=== PATIENT | male | born 1955 | race Caucasian/White ===

== ENCOUNTER → 2016-07-02 | Outpatient (CLI) | payer BC, OTHER ==
[~2016-07-02] MED LIST: AMLO-61 PO; AMLO10CA PO; BISO10TA3 PO; HYDR-3716 PO; MECL-68 PO; NEUR300C PO; VICO7.5T11 PO
--- NOTE | 2016-07-15 23:21 | ECWPNPC ---
PATIENT NAME: MIRANDA VICTOR : 1955 GENDER: MALE VISIT DATE: 07/02/2016 DISCHARGE DATE: 07/02/16 1520 VISIT LOCKED DATE TIME: PHYSICIAN: KORY CHAMBERS RESOURCE: KORY CHAMBERS REASON FOR APPOINTMENT 1. WC LBP RECONSULT HISTORY OF PRESENT ILLNESS FALL RISK SCREENING: SCREENING :NO FALLS IN THE PAST YEAR 61 YEAR OLD MALE PATIENT WITH HISTORY OF CHRONIC BILATERAL HAND, LEFT SHOULDER, AND BACK PAIN. PATIENT DESCRIBES THE PAIN ACHING, TENDER, SORE, AND HAVING IT ALL THE TIME WITH A PAIN SCORE OF 7/10 ON TODAY'S VISIT. 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 PATIENT REPORTS THAT HE HAS HAD TWO BACK SURGERIES. PATIENT REPORTS OF TRYING PHYSICAL THERAPY FOR 2 MONTHS WITH OUT ANY IMPROVEMENTS IN PAIN RELIEF. PATIENT REPORTS THAT HE HAS RADIATING PAIN DOWN HIS LEFT LEG FROM HIS BACK. PATIENT DENIES UNEXPLAINABLE WEIGHT LOSS, FEVER, CHILLS, NEW CHANGES ON HIS URINARY OR BOWEL CONTROL. PAIN SCREENING: PATIENT HAS A COMPLAINT OF ACUTE OR CHRONIC PAIN :YES CURRENT MEDICATIONS TAKING MUPIROCIN 2 % OINTMENT 1 APPLICATION TO AFFECTED AREA EXTERNALLY THREE TIMES A DAY TAKING CETIRIZINE HCL 10 MG TABLET 1 TABLET NEEDED ORALLY ONCE A DAY TAKING AMLODIPINE BESY-BENAZEPRIL HCL 10-20 MG CAPSULE ORALLY TAKING SERTRALINE HCL 50 MG TABLET 0.5 TABLET ORALLY ONCE A DAY TAKING ASPIRIN ADULT LOW STRENGTH 81 MG TABLET DELAYED RELEASE 1 TABLET ORALLY ONCE A DAY TAKING MECLIZINE HCL 25 MG TABLET CHEWABLE 1 TABLET NEEDED ORALLY ONCE A DAY TAKING VICODIN TAKING BISOPROLOL-HYDROCHLOROTHIAZIDE 10-6.25 MG TABLET ORALLY DAILY NOT-TAKING TRIAMCINOLONE ACETONIDE 0.1 % OINTMENT 1 APPLICATION TO AFFECTED AREA EXTERNALLY TO EFFECTED AREA OF ARM AND LEG TWICE A DAY UNKNOWN AMLODIPINE BESYLATE MEDICATION LIST REVIEWED AND RECONCILED WITH THE PATIENT PAST MEDICAL HISTORY HYPERTENSION LOW BACK PAIN ANXIETY DEPRESSION ALLERGIES SEAFOOD: ANAPHYLAXIS BEE STING: ANAPHYLAXIS SURGICAL HISTORY BACK FUSION WITH RODS SHOULDER SURGERY CLAVICLE SURGERY CARPAL TUNNEL BILATERAL TONSILLECTOMY VASECTOMY FAMILY HISTORY FATHER: ALIVE MOTHER: ALIVE FATHER HX OF KIDNEY DISEASE, ALCOHOL ABUSE.MOTHER HX OF ARTHRITIS. SOCIAL HISTORY GENERAL: TOBACCO USE ARE YOU A: NEVER SMOKER DIET: REGULAR DIET. EXERCISE: NO REGULAR EXERCISE. MARITAL STATUS: . OTHERS AT HOME: SPOUSE. ADVANCED DIRECTIVES HEALTH CARE PROXY? NO ADVANCED DIRECTIVES HOSPITALIZATION/MAJOR DIAGNOSTIC PROCEDURE VERTIGO REVIEW OF SYSTEMS CONSTITUTIONAL: ANY CHANGE IN YOUR MEDICAL CONDITION? NO . CHILLS NO . FEVER NO . INFECTION: DO YOU HAVE NEW INFECTIONS? NO . DO YOU HAVE HISTORY OF MRSA? NO . MUSCULOSKELETAL: ANY NEW PATTERNS OF PAIN OR NUMBNESS? YES PT REPORTS LOW BACK PAIN. PT REPORTS THAT HIS LEG GAVE OUT IN MARCH, AND HE FELL ON HIS BACK. . SYTEMIC LUPUS NO . GASTROENTEROLOGY: ANY NEW CHANGE IN BOWEL CONTROL? NO . BARRETTS ESOPHAGUS NO . CIRRHOSIS NO . HEPATITIS NO . LIVER FAILURE NO . ACID REFLUX NO . UNEXPLAINED WEIGHT LOSS NO . GENITOURINARY: ANY NEW CHANGE IN BLADDER CONTROL? NO . IS THERE A CHANCE YOU COULD BE ? NO . HEMATOLOGY/LYMPH: DO YOU TAKE ANY BLOOD THINNERS? (FOR EXAMPLE- COUMADIN, PLAVIX, AGGRENOX, PLATEL, PRADAXA, OR XARELTO) NO . WHEN WAS YOUR LAST DOSE? DATE: TIME: . LOW PLATELET COUNT NO . SICKLE CELL DISEASE NO . VON WILLIEBRANDS NO . FACTOR V LEIDEN NO . THALLASEMIA NO . ANEMIA NO . EASY BRUISING NO . NEUROLOGY: HAVE YOU FALLEN IN THE PAST 6 MONTHS? YES . ANY NEW EXTREMITY NUMBNESS OR WEAKNESS? NO . HEAD INJURY NO . DEMENTIA NO . CEREBRAL PALSY NO . MULTIPLE SCLEROSIS NO . DIZZINESS NO . HEADACHE NO . STROKES NO . VERTIGO NO . CARDIOLOGY: DO YOU HAVE A PACEMAKER OR DEFIBRILLATOR? NO . ANGINA NO . HEART ATTACK NO . HEART SURGERY NO . CONGESTIVE HEART FAILURE/FLUID OVERLOAD NO . CHEST PAIN NO . HIGH BLOOD PRESSURE ON MEDICATION(S) . IRREGULAR HEART BEAT NO . RESPIRATORY: HAVE YOU BEEN SICK IN THE PAST WEEK? NO . FEVER NO . FLU LIKE SYMPTOMS? NO . CPAP NO . BYPAP NO . ASTHMA NO . EMPHYSEMA NO . CHRONIC LUNG DISEASES NO . SHORTNESS OF BREATH ON EXERTION NO . COUGH NO . SNORING NO . INTEGUMENTARY: DO YOU HAVE ANY RASHES OR OPEN SORES? NO . ALLERGIC/IMMUNO: ARE YOU ALLERGIC TO SHELLFISH OR IV DYE? YES . ANY NEW ALLERGIES? NO . PSYCHIATRIC: DO YOU HAVE THOUGHTS OF HURTING YOURSELF OR SOMEONE ELSE? NO . ARE YOU ABUSED, NEGLECTED, OR IN AN UNSAFE ENVIRONMENT? NO . ENDOCRINOLOGY: ARE YOU DIABETIC? NO . THYROID DISORDER NO . OTHER: DO YOU NEED ANY PRESCRIPTIONS? NO . IF YES, PLEASE LIST: ____ . ANY NEW PROBLEMS WITH YOUR MEDICATIONS? NO . WHEN DID YOU LAST EAT? ____ . WHEN DID YOU LAST DRINK? ____ . WHAT DID YOU LAST DRINK? ____ . NAME OF PERSON DRIVING YOU HOME? ____ . DO YOU HAVE ANY OTHER QUESTIONS OR CONCERNS NO . REVIEWED BY: PROVIDER: KORY CHAMBERS MD . VITAL SIGNS WT 265.0 LBS, HT 67", BMI 41.50 INDEX, BP 168/92 R ARM, REPEAT BP 153/87 L ARM, HR 63 /MIN, RR 16 /MIN, TEMP 98.1 F, OXYGEN SAT % 96%, SAFE IN ENV? (Y/N) YES, NA INITIALS TL 1331, REVIEWED BY: AJAY. EXAMINATION : PATIENT IS ALERT O X 3 AND COOPERATIVE. PATIENT AMBULATES WITH A LIMP ON THE RIGHT LEG. PATIENT IS ABLE TO FLEX HIS BACK TO 80 DEGREES AND EXTEND TO 10 DEGREES. THERE IS TENDERNESS IN THE LOW BACK PARASPINAL MUSCLE GROUP. PATIENT'S LEFT LEG IS WEAKER AT FLEXION AND EXTENSION. MRI OF THE LUMBAR SPINE DONE ON 03/18/2016 SHOWS A L4-S1 POSTERIOR FUSION WITH PEDICLE SCREWS, ARCH BARS AND DISC SPACE PROSTHESES AT L4-L5 AND L5-S1. ASSESSMENTS POSTLAMINECTOMY SYNDROME, NOT ELSEWHERE CLASSIFIED - M96.1 (PRIMARY) INTERVERTEBRAL DISC DISORDERS WITH RADICULOPATHY, LUMBAR REGION - M51.16 INTERVERTEBRAL DISC DISORDERS WITH RADICULOPATHY, LUMBOSACRAL REGION - M51.17 TREATMENT POSTLAMINECTOMY SYNDROME, NOT ELSEWHERE CLASSIFIED NOTES: WE DISCUSSED SEVERAL ISSUES WITH MR. VICTOR'S PAIN MANAGEMENT CASE. I DISCUSSED WITH THE PATIENT THAT DR. BRONSON REFERRED HIM TO US TO DISCUSS WHETHER HE IS A CANDIDATE FOR A DCS TRIAL. I DISCUSSED IN DETAIL WITH THE PATIENT WITH WHAT TO EXPECT AND THE PROCESSES FOR PROCEEDING FORWARD WITH A DCS TRIAL. INFORMED THE PATIENT THAT IF THE TRIAL IS SUCCESSFUL DR. BRONSON WITH PROCEED WITH THE DCS PERMANENT. SINCE WE HAVE AN MRI REPORT OF THE LUMBAR SPINE, I WILL WRITE A SCRIPT FOR A THORACIC MRI, ADVISED THE PATIENT THAT I WILL FIRST NEED TO REQUEST AUTH FOR THE THORACIC MRI. DISCUSSED WITH THE PATIENT THAT I WILL REFER HIM OUT FOR A PSYCHOLOGICAL EVALUATION FOR THE SPINAL COLUMN STIMULATOR. DISCUSSED WITH THE PATIENT THAT DR. BRONSON WOULD LIKE TO PROCEED WITH USING [employer] FOR THE SPINAL COLUMN STIMULATOR. PATIENT WILL FOLLOW UP WITH ME IN 6 WEEKS. ,INSTRUCTIONS WERE GIVEN, QUESTIONS WERE ANSWERED, PATIENT REPORTS UNDERSTANDING AND AGREES WITH THE PLAN. I, OXANA ACOSTA, DOCUMENTED THE ABOVE INFORMATION ACTING A SCRIBE FOR DR. CHAMBERS. I HAVE REVIEWED THE ABOVE DOCUMENT, WRITTEN BY OXANA ACOSTA SCRIBE AND I VERIFY THAT IT IS ACCURATE. DR. BRONSON -THANK YOU FOR YOUR KIND REFERRAL OF MR. VICTOR. IF YOU WOULD LIKE TO DISCUSS HIS CASE WITH ME, PLEASE CALL ME AT THE PAIN CENTER AT [phone]. PROCEDURES PN WORKMANS' COMP OPINION IN YOUR OPINION, WAS THE INCIDENT THAT THE PATIENT DESCRIBED THE COMPETENT MEDICAL CAUSE OF THIS INJURY/ILLNESS? YES ARE THE PATIENT'S COMPLAINTS CONSISTENT WITH HIS/HER HISTORY OF THE INJURY/ILLNESS? YES IS THE PATIENT'S HISTORY OF THE INJURY/ILLNESS CONSISTENT WITH YOUR OBJECTIVE FINDING? YES WHAT IS THE PERCENTAGE OF TEMPORARY IMPAIRMENT? TOTAL = 100% PER REFERRING PHYSICIAN. IS THE PATIENT WORKING? NO DOCTOR ON SITE: KORY TERRY MD PROCEDURE CODES FA211 ESTABILISHED PATIENT [facility] FACILITY CHARGE G8730 PAIN ASSESS POS TOOL F/U PLAN DOC G8427 DOC MEDS VERIFIED W/PT OR RE DISPOSITION & COMMUNICATION FOLLOW UP 6 WEEKS ELECTRONICALLY SIGNED BY KORY CHAMBERS MD ON 07/15/2016 AT 05:18 PM EDT DISCLAIMER : THIS IS A VISIT SUMMARY EXTRACTED FROM THE [employer] CHART. IT IS NOT A COPY OF THE [employer] PROGRESS NOTE. MTDD
== END ==
LOC: M PAIN 13:00
PROVIDERS: ATTEND Anesthesiology
DX: Z09 Encounter for follow-up examination after completed treatment for conditions other than malignant neoplasm (principal); M96.1 Postlaminectomy syndrome, not elsewhere classified; M51.16 Intervertebral disc disorders with radiculopathy, lumbar region; M51.17 Intervertebral disc disorders with radiculopathy, lumbosacral region; I10 Essential (primary) hypertension; F41.9 Anxiety disorder, unspecified; F32.9 Major depressive disorder, single episode, unspecified; Z91.030 Bee allergy status; Z91.013 Allergy to seafood; Z79.82 Long term (current) use of aspirin; Z79.891 Long term (current) use of opiate analgesic; Z79.899 Other long term (current) drug therapy

== ENCOUNTER → 2016-09-10 | Outpatient (CLI) | payer OTHER, BC | LOC: M PAIN 13:20 | PROVIDERS: ATTEND Anesthesiology | DX: Z53.29 Procedure and treatment not carried out because of patient's decision for other reasons (principal) ==

== ENCOUNTER → 2016-11-24 | Outpatient (CLI) | payer OTHER, BC ==
[~2016-11-24] MED LIST changes: -AMLO-61 PO; +AMLO1TAB21 PO
--- NOTE | 2016-11-24 09:29 | REP ---
LUMBAR SPINE, FIVE VIEWS: HISTORY: Back pain. COMPARISON: 03/18/2016. The patient is status post L4-S1 anterior and posterior spinal fusion and L4-5 laminectomy. Bone graft material is present anteriorly and metal rods and pedicle screws posteriorly. One of the rods is broken. There is no acute fracture. The lumbar intervertebral discs are decreased in height. Vacuum phenomenon is present at the L1-2, L2-3 and L4-5 levels. These findings are consistent with disc degeneration. Osteophytes are present throughout the lumbar spine. There are 7 mm of grade 1 spondylolisthesis of L4 on 5 that is unchanged with flexion and extension. IMPRESSION: 1. The patient is status post L4-S1 anterior and posterior spinal fusion and L4-5 laminectomy. 2. Degenerative change as described above. Signed by Dieter Man MD 11/24/2016 09:33 A
== END ==
LOC: M RAD 08:35
PROVIDERS: ATTEND Physician Assistant
DX: M51.36 Other intervertebral disc degeneration, lumbar region (principal); M96.1 Postlaminectomy syndrome, not elsewhere classified

== ENCOUNTER 2017-09-05 | Emergency (ER) | payer BC, OTHER ==
[2017-09-05] MEDS: MECLIZINE 25 MG TABLET PO (00:31)
[2017-09-05] MEDS: ONDANSETRON 4MG/2ML VIAL (J2405) IV (00:32)
== END 2017-09-05 02:50 | disposition home or self-care (01) ==
LOC: M ED
DX: R42 Dizziness and giddiness (principal); W11.XXXA Fall on and from ladder, initial encounter; Y92.89 Other specified places as the place of occurrence of the external cause; I10 Essential (primary) hypertension; F41.9 Anxiety disorder, unspecified; F12.10 Cannabis abuse, uncomplicated; Z88.5 Allergy status to narcotic agent; Z91.013 Allergy to seafood; Z91.030 Bee allergy status; Z79.899 Other long term (current) drug therapy
CPT/HCPCS: J2405

== ENCOUNTER → 2018-06-11 | Outpatient (REF) | payer BC ==
[2018-06-11 11:43] LABS: HEMATOCRIT 43.9 % (42.0-52.0); HEMOGLOBIN 15.1 g/dl (13.5-17.5); MEAN CORPUSCULAR HEMOGLOBIN 30.1 pg (27.0-33.0); MEAN CORPUSCULAR HGB CONC 34.4 g/dl (32.0-36.5); MEAN CORPUSCULAR VOLUME 87.6 fl (80.0-96.0); PLATELET COUNT, AUTOMATED 232 10^3/uL (150-450); RED BLOOD COUNT 5.01 10^6/uL (4.30-6.10); WHITE BLOOD COUNT 6.7 10^3/uL (4.0-10.0)
[2018-06-11 12:01] LABS: ALBUMIN 4.3 GM/DL (3.2-5.2); ALT/SGPT 44 U/L (12-78); BILIRUBIN,TOTAL 0.5 MG/DL (0.2-1.0); BLOOD UREA NITROGEN 11 MG/DL (7-18); CALCIUM LEVEL 8.8 MG/DL (8.8-10.2); CARBON DIOXIDE LEVEL 30 MEQ/L (21-32); CHLORIDE LEVEL 103 MEQ/L (98-107); CHOLESTEROL LEVEL 199 MG/DL (<200); CHOLESTEROL RISK RATIO 6.633 (<5); CREATININE FOR GFR 0.74 MG/DL (0.70-1.30); GLOMERULAR FILTRATION RATE > 60.0 (>49); GLUCOSE, FASTING 154 MG/DL (70-100); HDL CHOLESTEROL 30 MG/DL (>40); NON-HDL-C 169 MG/DL; POTASSIUM SERUM 4.6 MEQ/L (3.5-5.1); SODIUM LEVEL 141 MEQ/L (136-145); TOTAL PROTEIN 7.5 GM/DL (6.4-8.2); TRIGLYCERIDES LEVEL 483 MG/DL (<150)
== END ==
LOC: M SFHCPLAZ 08:10
PROVIDERS: ATTEND Nurse Practitioner Adult Health
DX: Z00.00 Encounter for general adult medical examination without abnormal findings (principal); Z13.220 Encounter for screening for lipoid disorders

== ENCOUNTER → 2018-11-14 | Outpatient (REF) | payer BC ==
[~2018-11-14] MED LIST changes: -AMLO10CA PO; +AMLO10CA17 PO; -BISO10TA3 PO; +BISO10TA4 PO
[2018-11-14 11:49] LABS: ALBUMIN 4.3 GM/DL (3.2-5.2); ALT/SGPT 61 U/L (12-78); BILIRUBIN,TOTAL 0.9 MG/DL (0.2-1.0); BLOOD UREA NITROGEN 14 MG/DL (7-18); CALCIUM LEVEL 9.5 MG/DL (8.8-10.2); CARBON DIOXIDE LEVEL 32 MEQ/L (21-32); CHLORIDE LEVEL 98 MEQ/L (98-107); CHOLESTEROL LEVEL 186 MG/DL (<200); CHOLESTEROL RISK RATIO 6.413 (<5); CREATININE FOR GFR 0.82 MG/DL (0.70-1.30); GLOMERULAR FILTRATION RATE > 60.0 (>49); GLUCOSE, FASTING 201 MG/DL (70-100); HDL CHOLESTEROL 29 MG/DL (>40); NON-HDL-C 157 MG/DL; POTASSIUM SERUM 4.2 MEQ/L (3.5-5.1); SODIUM LEVEL 136 MEQ/L (136-145); TOTAL PROTEIN 7.5 GM/DL (6.4-8.2); TRIGLYCERIDES LEVEL 533 MG/DL (<150)
[2018-11-14 12:11] LABS: HEMOGLOBIN A1c 8.3 %
== END ==
LOC: M SFHCPLAZ 08:07
PROVIDERS: ATTEND Nurse Practitioner Adult Health
DX: I10 Essential (primary) hypertension (principal); R73.9 Hyperglycemia, unspecified; E78.1 Pure hyperglyceridemia

== ENCOUNTER → 2018-12-15 | Outpatient (CLI) | payer BC ==
[~2018-12-15] MED LIST changes: +AMLO10TA5; +CARV25TA; +DIPH50CA PO; +EPIP0.3I2 IM; -MECL-68 PO; +MECL1TAB31 PO; +METF750T36; +PEPC1TAB5 PO; +PRED20TA PO; +VALS1TAB68; -VICO7.5T11 PO; +VICO7.5T12 PO
--- NOTE | 2018-12-16 05:27 | REP ---
Clinical: Hypertension and chronic medical renal disease. Technique: Gandara scale and color Doppler evaluation of the kidneys and renal vasculature using curved array transducer. Findings: The kidneys are essentially normal in contour size and echogenicity and reniform shape without hydronephrosis, nephrolithiasis, cystic or renal mass lesion. Right kidney measures 13.0 x 5.4 x 5.8 cm . Left kidney measures 12.6 x 5.1 x 5.5 cm . Bladder is incompletely distended and grossly normal by current evaluation. Color Doppler evaluation of the renal vasculature demonstrates normal arterial wave patterns, velocities, renal aortic ratios, resistive indices and the acceleration time. No sonographic evidence for renal arterial stenosis noted. Renal vein is patent. Right Kidney: Peak arterial velocity: 77 cm/sec . Renal aortic ratio: 1.40 . Resistive indices: 0.69 - 0.72 . Acceleration times: 0.02 - 0.04 . Left kidney: Peak arterial velocity: 73 cm/sec . Renal aortic ratio: 1.3 . Resistive indices: 0.68 - 0.79 . Acceleration times: 0.03 - 0.04 . Impression: Normal renal ultrasound. No evidence for renal arterial stenosis. Electronically Signed by Vince Pedroza MD 12/16/2018 05:18 A
== END ==
LOC: M RAD 08:15
PROVIDERS: ATTEND Internal Medicine Cardiovascular Disease
DX: I10 Essential (primary) hypertension (principal)

== ENCOUNTER → 2018-12-20 | Outpatient (CLI) | payer BC ==
[~2018-12-20] MED LIST changes: +MECL-68 PO; -MECL1TAB31 PO
== END ==
LOC: M LRY 09:16
PROVIDERS: ATTEND Internal Medicine Cardiovascular Disease
DX: I10 Essential (primary) hypertension (principal)

== ENCOUNTER 2018-12-29 15:22 | Emergency (ER) | payer BC ==
[~2018-12-29] VITALS: Ht 170.2 cm; Wt 113.6 kg
[~2018-12-29 15:22] MED LIST changes: -AMLO10TA5; -CARV25TA; -DIPH50CA PO; -EPIP0.3I2 IM; -METF750T36; -PEPC1TAB5 PO; -PRED20TA PO; -VALS1TAB68
[2018-12-29] MEDS ORDERED: METF750T36 (15:31)
[2018-12-29] MEDS ORDERED: CARV25TA (15:31)
[2018-12-29] MEDS ORDERED: VALS1TAB68 (15:31)
[2018-12-29] MEDS ORDERED: AMLO10TA5 (15:31)
[2018-12-29] MEDS ORDERED: FAMOTIDINE INJ 20MG/2ML VIAL (S0028) IVP ONE (16:00)
[2018-12-29] MEDS ORDERED: DIPH50CA PO (16:21)
[2018-12-29] MEDS ORDERED: PRED20TA PO (16:21)
[2018-12-29] MEDS ORDERED: PEPC1TAB5 PO (16:22)
[2018-12-29] MEDS ORDERED: FAMOTIDINE 20 MG TAB PO ONE (16:30)
[2018-12-29 17:30] VITALS: BP 147/80
[2018-12-29] MEDS ORDERED: EPIP0.3I2 IM (17:34)
== END 2018-12-29 17:38 | disposition home or self-care (01) ==
LOC: EDBD 15:22 → M ED 15:22
DX: T63.441A Toxic effect of venom of bees, accidental (unintentional), initial encounter (principal); Z88.5 Allergy status to narcotic agent; Z91.030 Bee allergy status; Z91.013 Allergy to seafood; Z86.73 Personal history of transient ischemic attack (TIA), and cerebral infarction without residual deficits; I10 Essential (primary) hypertension; G47.30 Sleep apnea, unspecified; Z79.52 Long term (current) use of systemic steroids; Z79.899 Other long term (current) drug therapy; F41.9 Anxiety disorder, unspecified; F32.9 Major depressive disorder, single episode, unspecified

== ENCOUNTER → 2019-01-08 | Outpatient (CLI) | payer BC ==
[~2019-01-08] MED LIST changes: +AMLO10TA5; +CARV25TA; +DIPH50CA PO; +EPIP0.3I2 IM; +METF750T36; +PEPC1TAB5 PO; +PRED20TA PO; +VALS1TAB68
== END ==
LOC: M LRY 08:44
PROVIDERS: ATTEND Internal Medicine Endocrinology, Diabetes & Metabolism
DX: E24.9 Cushing's syndrome, unspecified (principal)

== ENCOUNTER → 2019-02-11 | Outpatient (CLI) | payer BC | LOC: M LRY 08:11 | PROVIDERS: ATTEND Internal Medicine Endocrinology, Diabetes & Metabolism | DX: E24.9 Cushing's syndrome, unspecified (principal) ==

== ENCOUNTER 2019-09-18 06:57 | Emergency (ER) | payer BC ==
[~2019-09-18] VITALS: Ht 170.2 cm; Wt 103.2 kg
[~2019-09-18 06:57] MED LIST changes: -AMLO10TA5; +AMLO1TAB25; -MECL-68 PO; +MECL1TAB31 PO
[2019-09-18] MEDS ORDERED: QC A650T3 PO (07:05)
[2019-09-18] MEDS ORDERED: ZOFR4TAB16 PO (07:05)
[2019-09-18] MEDS ORDERED: MECL-86 PO (07:05)
[2019-09-18] MEDS ORDERED: NS 1,000 ML IV ONE ×2 (07:30→09:45)
[2019-09-18 08:06] LABS: BASO # 0.1 10^3/uL (0.0-0.2); BASO % 0.4 % (0.0-1.0); EOS # 0.1 10^3/uL (0.0-0.5); EOS % 0.5 % (0.0-3.0); HEMATOCRIT 46.3 % (42.0-52.0); HEMOGLOBIN 16.2 g/dl (13.5-17.5); LYMPH # 2.2 10^3/uL (1.5-5.0); LYMPH % 17.7 % (24.0-44.0); MEAN CORPUSCULAR HEMOGLOBIN 29.7 pg (27.0-33.0); MEAN CORPUSCULAR VOLUME 84.8 fl (80.0-96.0); MONO # 0.7 10^3/uL (0.0-0.8); MONO % 5.4 % (0.0-5.0); NEUTROPHILS # 9.4 10^3/uL (1.5-8.5); PLATELET COUNT, AUTOMATED 318 10^3/uL (150-450); RED BLOOD COUNT 5.46 10^6/uL (4.30-6.10); WHITE BLOOD COUNT 12.6 10^3/uL (4.0-10.0)
[2019-09-18] MEDS ORDERED: ONDANSETRON 4MG/2ML VIAL IV ONE (08:15)
[2019-09-18 08:24] LABS: ALBUMIN 4.4 GM/DL (3.2-5.2); ALT/SGPT 31 U/L (12-78); BILIRUBIN,DIRECT 0.3 MG/DL (0.0-0.2); BILIRUBIN,TOTAL 1.2 MG/DL (0.2-1.0); CK-MB VALUE MASS 2.3 NG/ML (<3.6); CPK CREATINE PHOSPHOKINASE 201 U/L (39-308); LIPASE 191 U/L (73-393); MB/CK RELATIVE INDEX 1.14 (< OR =4); TOTAL PROTEIN 8.3 GM/DL (6.4-8.2); TROPONIN I < 0.02 NG/ML (< 0.10)
[2019-09-18 09:20] LABS: AMPHETAMINES LEVEL URINE NEGATIVE (NEGATIVE); BARBITURATES URINE NEGATIVE (NEGATIVE); BENZODIAZEPINES URINE NEGATIVE (NEGATIVE); CANNABINOIDS URINE POSITIVE (NEGATIVE); COCAINE METABOLITE URINE NEGATIVE (NEGATIVE); METHADONE URINE NEGATIVE (NEGATIVE); OPIATES URINE NEGATIVE (NEGATIVE); PHENCYCLIDINE URINE NEGATIVE (NEGATIVE)
[2019-09-18] MEDS ORDERED: ISOVUE-370 76% 100ML VIAL As Ordered ONE (09:28)
--- NOTE | 2019-09-18 10:12 | REP ---
REASON FOR EXAM: Lower abdominal pain. PRIORS: None. CONTRAST: 100 mL Isovue 370. The lung bases are clear. Minimal fibrotic change is seen on the right. The liver, gallbladder, spleen, pancreas, left adrenal glands, kidneys are within normal limits. Seen arising from the right adrenal gland, there is an oval-shaped 2.8 cm sized high adipose-containing nodule which is benign. The abdominal aorta and paraaortic regions are within normal limits. Calcific atherosclerotic change is seen within the abdominal aorta. The intra-abdominal and intrapelvic bowel loops and mesenteries are within normal limits. No free fluid or free air is seen in the abdomen or pelvis. There is no evidence of an intra-abdominal or intrapelvic mass or adenopathy. Bone window technique throughout the exam shows degenerative and postoperative changes seen involving the spine. Transpedicular screws are seen L4 through S1 bilaterally. There is a grade1/2 L4 upon L5 spondylolisthesis. IMPRESSION: 1. Benign adrenal gland nodule as described above. 2. No evidence of acute intra-abdominal or intrapelvic disease. Electronically Signed by David Gage DO 09/18/2019 01:45 P
[2019-09-18] MEDS ORDERED: HALOPERIDOL 5MG/ML VIAL (J1630 PER 1) IV ONE (11:00)
[2019-09-18] MEDS ORDERED: amLODIPine 10 MG TAB PO ONE (12:30)
[2019-09-18] MEDS ORDERED: CARVedilol 12.5 MG TAB PO ONE (12:30)
[2019-09-18 12:34] VITALS: BP 165/110
[2019-09-18] MEDS ORDERED: KETO10TAB PO (12:48)
[2019-09-18 13:26] VITALS: BP 125/90
--- NOTE | 2019-09-19 07:51 | ECGEPIP ---
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
--- NOTE | 2019-09-21 08:13 | ED PDOC ---
Post-Departure Follow-Up ct abd/p faxed to abhi granados for fu Guillermina Bynum MD Sep 21, 2019 08:13
--- NOTE | 2019-09-25 11:11 | REP ---
CT brain: 09/18/2019. Indication: Dizziness. Weakness. Technique: Unenhanced axial CT images of the brain were obtained from skull base to vertex with sagittal reconstructions provided. Comparison: 09/05/2017. Findings: There is no acute intracranial hemorrhage, acute cortical infarction, mass effect, hydrocephalus or significant fluid within the visualized paranasal sinuses/mastoid air cells. Diffuse volume loss is present. Intracranial atherosclerotic disease is noted. There are patchy areas of cerebral hemisphere white matter hypoattenuation most consistent with chronic small vessel disease. Incidental cavum septum pallucidum is present. Impression: No acute intracranial process. Volume loss and sequelae of chronic microangiopathic ischemic disease. Electronically Signed by Pramod Isaacs DO 09/18/2019 08:56 A
== END 2019-09-18 13:27 | disposition home or self-care (01) ==
LOC: M ED 06:57
DX: F12.10 Cannabis abuse, uncomplicated (principal); R11.2 Nausea with vomiting, unspecified; E11.9 Type 2 diabetes mellitus without complications; I10 Essential (primary) hypertension; R42 Dizziness and giddiness; E27.8 Other specified disorders of adrenal gland; Z79.84 Long term (current) use of oral hypoglycemic drugs; Z79.899 Other long term (current) drug therapy; Z91.013 Allergy to seafood; Z91.030 Bee allergy status; Z88.5 Allergy status to narcotic agent
CPT/HCPCS: 70450; 74177; 80047; 80076; 80307; 81001; 82550; 82553; 83605; 83690; 84484; 85025; 93005; 96361; 96374; 96375; 99284; J1630; J2405; Q9967

== ENCOUNTER 2019-10-10 13:12 | Emergency (ER) | payer BC ==
[~2019-10-10 13:12] MED LIST changes: +AMLO10TA5; -AMLO1TAB25; +KETO10TAB PO; +MECL-86 PO; +QC A650T3 PO; +ZOFR4TAB16 PO
[2019-10-10 14:10] LABS: BASO # 0.1 10^3/uL (0.0-0.2); BASO % 0.3 % (0.0-1.0); EOS % 0.1 % (0.0-3.0); HEMATOCRIT 44.7 % (42.0-52.0); HEMOGLOBIN 15.9 g/dl (13.5-17.5); LYMPH # 1.5 10^3/uL (1.5-5.0); LYMPH % 9.6 % (24.0-44.0); MEAN CORPUSCULAR HEMOGLOBIN 30.1 pg (27.0-33.0); MEAN CORPUSCULAR HGB CONC 35.6 g/dl (32.0-36.5); MEAN CORPUSCULAR VOLUME 84.5 fl (80.0-96.0); MONO # 0.4 10^3/uL (0.0-0.8); MONO % 2.6 % (0.0-5.0); NEUTROPHILS # 13.5 10^3/uL (1.5-8.5); NEUTROPHILS % 86.2 % (36.0-66.0); PLATELET COUNT, AUTOMATED 297 10^3/uL (150-450); RED BLOOD COUNT 5.29 10^6/uL (4.30-6.10); WHITE BLOOD COUNT 15.7 10^3/uL (4.0-10.0)
[2019-10-10] MEDS ORDERED: ONDANSETRON 4MG/2ML VIAL IV ONE (14:15)
[2019-10-10] MEDS ORDERED: NS 1,000 ML IV ONE (14:30)
[2019-10-10 14:41] LABS: ALBUMIN 4.8 GM/DL (3.2-5.2); ALT/SGPT 31 U/L (12-78); BILIRUBIN,DIRECT 0.3 MG/DL (0.0-0.2); BLOOD UREA NITROGEN 8 MG/DL (7-18); CALCIUM LEVEL 9.6 MG/DL (8.8-10.2); CARBON DIOXIDE LEVEL 23 MEQ/L (21-32); CHLORIDE LEVEL 100 MEQ/L (98-107); CREATININE FOR GFR 0.86 MG/DL (0.70-1.30); GLOMERULAR FILTRATION RATE > 60.0 (>49); GLUCOSE, FASTING 161 MG/DL (70-100); LIPASE 106 U/L (73-393); POTASSIUM SERUM 3.6 MEQ/L (3.5-5.1); SODIUM LEVEL 134 MEQ/L (136-145); TOTAL PROTEIN 8.4 GM/DL (6.4-8.2)
[2019-10-10] MEDS ORDERED: ISOVUE-370 76% 100ML VIAL As Ordered ONE (14:43)
[2019-10-10 14:58] LABS: CK-MB VALUE MASS 1.1 NG/ML (<3.6); CPK CREATINE PHOSPHOKINASE 122 U/L (39-308); TROPONIN I < 0.02 NG/ML (< 0.10)
[2019-10-10] MEDS ORDERED: HALOPERIDOL 5MG/ML VIAL (J1630 PER 1) IV ONE (15:15)
[2019-10-10 16:17] LABS: AMPHETAMINES LEVEL URINE NEGATIVE (NEGATIVE); BARBITURATES URINE NEGATIVE (NEGATIVE); BENZODIAZEPINES URINE NEGATIVE (NEGATIVE); CANNABINOIDS URINE POSITIVE (NEGATIVE); COCAINE METABOLITE URINE NEGATIVE (NEGATIVE); METHADONE URINE NEGATIVE (NEGATIVE); OPIATES URINE NEGATIVE (NEGATIVE); PHENCYCLIDINE URINE NEGATIVE (NEGATIVE)
[2019-10-10] MEDS ORDERED: PROT1TAB2 PO (18:32)
[2019-10-10] MEDS ORDERED: ONDA4TAB6 PO (18:32)
[2019-10-10 18:45] VITALS: BP 144/68
--- NOTE | 2019-10-11 11:37 | REP ---
ACUTE ABDOMINAL SERIES: 10/10/2019. COMPARISON: CT abdomen/pelvis 09/18/2019, portable chest 10/28/2015. CLINICAL HISTORY: Abdominal pain. FINDINGS: PA CHEST: Lungs are well inflated. There is no pleural effusion, infiltrate, atelectasis, or mass. The heart is not enlarged. The aorta is mildly tortuous but unchanged. The mediastinal and hilar contours are unchanged. Bony thorax shows some minor degenerative changes. No free air. FLAT/UPRIGHT ABDOMEN: Prior L4 through S1 posterior lumbar fusion with disc spacers and pedicle screws. No hardware failure. Levoconvex curve lumbar spine centered at L2-3. Marginal osteophytes throughout the lumbar spine with disc space narrowing, degenerative changes in the lower thoracic spine as well. The SI joints intact. Sacral ala and foramina otherwise intact iliac wings. Pelvic rim intact. The gas pattern is nonspecific. Mostly fluid-filled small bowel loops and scattered stool and gas in the colon without definite evidence of obstruction, mass, or free air. No abnormal calcifications over the renal fossae. IMPRESSION: 1. Nonspecific gas pattern without obstruction, mass, or free air. Paucity of gas in the small bowel loops. 2. Lower lumbar spine fusion. 3. PA chest without acute finding. Electronically Signed by Jorgito Patton MD 10/11/2019 06:50 P
--- NOTE | 2019-10-11 11:42 | REP ---
CT ABDOMEN/PELVIS WITH IV CONTRAST ONLY: 10/10/2019. COMPARISON: Acute abdominal series 10/10/2019, CT 09/18/2019. TECHNIQUE: 100 mL Isovue 370 for IV contrast, scanning through the abdomen/pelvis with coronal and sagittal reconstructions. FINDINGS: CT ABDOMEN: Lung bases remain clear. Heart not enlarged. There is no pericardial thickening or effusion. Small hiatal hernia evident with some thickening of the lower esophagus, may be related to reflux esophagitis or other. Please correlate clinically. There is no hepatosplenomegaly, focal hepatic or splenic mass, nor biliary dilatation. I see no ascites. Gallbladder shows no calcified stone or mass. Pancreas is unremarkable. Adrenal glands show nodule on the right, unchanged. The left adrenal gland unremarkable. Kidneys show function without obstruction. There is no hydronephrosis, stone, mass, or cyst. No pancreatic inflammatory changes, calcifications, adjacent fluid collections, or adenopathy. The aorta has atherosclerotic calcifications without aneurysm. There is no periaortic, retroperitoneal, or mesenteric pathologic sized lymphadenopathy. Small bowel loops are without dilatation and are all fluid-filled. No air-fluid levels. No obstruction. Stool and gas scattered in the colon. The appendix is seen and normal. I do not see colitis in the right colon. The transverse colon is collapsed and without inflammatory changes. Appearance unchanged. The left colon is also collapsed and crosses the midline so it is below the cecum before the sigmoid descends into the deep pelvis. There is diverticulosis of the sigmoid but not the left colon. No diverticulitis. No inflammatory changes in the adjacent fat. No ventral hernia. The bone windows show the prior lumbar fusion L4 through S1 with hardware intact and grade 1 anterolisthesis of L4 on L5 stable. Discogenic endplate changes at the L1-2 level with vacuum phenomenon and other degenerative changes in the lower thoracic region. Rectum and sigmoid collapsed, and the sigmoid is ectatic and elongated but without inflammatory change. There is diverticulosis without diverticulitis in a portion of the sigmoid. No ascites or inflammatory changes in the pelvis. A few calcifications in the prostate, which indents the bladder base. No ventral or inguinal hernia nor inguinal adenopathy. No pelvic lymphadenopathy. IMPRESSION: 1. Nonspecific gas pattern without obstruction, mass, or free air. Collapse of the transverse left colon and most of the sigmoid, but without inflammatory changes in the adjacent fat to clearly define colitis. Diverticulosis sigmoid without diverticulitis. 2. There is no ascites, abscess, perforation, or free air. 3. Liver, spleen, gallbladder, pancreas, left adrenal gland, and kidneys are unremarkable. 4. Small nodule in the right adrenal gland stable. There is also a small hiatal hernia and thickening of the lower esophageal wall that could be due to reflux esophagitis or other. Please correlate clinically. Electronically Signed by Jorgito Patton MD 10/11/2019 06:51 P
--- NOTE | 2019-10-13 13:33 | ED PDOC ---
Post-Departure Follow-Up [facility] granados faxed formal report of ct abd/p for fu Guillermina Bynum MD Oct 13, 2019 13:33
== END 2019-10-10 18:46 | disposition home or self-care (01) ==
LOC: M ED 13:12
DX: F12.10 Cannabis abuse, uncomplicated (principal); R11.15 Cyclical vomiting syndrome unrelated to migraine; K57.30 Diverticulosis of large intestine without perforation or abscess without bleeding; E27.8 Other specified disorders of adrenal gland; K44.9 Diaphragmatic hernia without obstruction or gangrene; K21.0 Gastro-esophageal reflux disease with esophagitis; R74.0 Nonspecific elevation of levels of transaminase and lactic acid dehydrogenase [LDH]; R10.84 Generalized abdominal pain; R11.2 Nausea with vomiting, unspecified; E11.9 Type 2 diabetes mellitus without complications; I10 Essential (primary) hypertension; R42 Dizziness and giddiness; Z79.84 Long term (current) use of oral hypoglycemic drugs; Z79.899 Other long term (current) drug therapy; Z91.013 Allergy to seafood; Z91.030 Bee allergy status; Z88.5 Allergy status to narcotic agent
CPT/HCPCS: 74021; 74177; 80048; 80076; 80307; 81001; 82550; 82553; 83605; 83690; 84484; 85025; 96361; 96374; 96375; 99284; J1630; J2405; Q9967

== ENCOUNTER → 2020-01-11 | Outpatient (REF) | payer BC ==
[~2020-01-11] MED LIST changes: -AMLO10TA5; +AMLO1TAB25; +ONDA4TAB6 PO; +PROT1TAB2 PO
[2020-01-11 14:16] LABS: ALBUMIN 4.2 GM/DL (3.2-5.2); ALT/SGPT 25 U/L (12-78); BILIRUBIN,TOTAL 0.7 MG/DL (0.2-1.0); BLOOD UREA NITROGEN 10 MG/DL (7-18); CALCIUM LEVEL 9.3 MG/DL (8.8-10.2); CARBON DIOXIDE LEVEL 30 MEQ/L (21-32); CHLORIDE LEVEL 104 MEQ/L (98-107); CHOLESTEROL LEVEL 162 MG/DL (<200); CHOLESTEROL RISK RATIO 5.225 (<5); CREATININE FOR GFR 0.76 MG/DL (0.70-1.30); GLOMERULAR FILTRATION RATE > 60.0 (>49); GLUCOSE, FASTING 152 MG/DL (70-100); HDL CHOLESTEROL 31 MG/DL (>40); NON-HDL-C 131 MG/DL; POTASSIUM SERUM 4.3 MEQ/L (3.5-5.1); SODIUM LEVEL 138 MEQ/L (136-145); TOTAL PROTEIN 7.4 GM/DL (6.4-8.2); TRIGLYCERIDES LEVEL 432 MG/DL (<150)
[2020-01-11 14:47] LABS: HEMOGLOBIN A1c 5.6 %
== END ==
LOC: M SFHCPLAZ 10:52
PROVIDERS: ATTEND Nurse Practitioner Adult Health
DX: E11.9 Type 2 diabetes mellitus without complications (principal); E78.1 Pure hyperglyceridemia

== ENCOUNTER → 2020-11-10 | Outpatient (CLI) | payer BC ==
[2020-11-10 08:50] LABS: ALBUMIN 4.2 GM/DL (3.2-5.2); ALT/SGPT 33 U/L (12-78); BILIRUBIN,TOTAL 0.6 MG/DL (0.2-1.0); BLOOD UREA NITROGEN 9 MG/DL (7-18); CALCIUM LEVEL 8.9 MG/DL (8.8-10.2); CARBON DIOXIDE LEVEL 28 MEQ/L (21-32); CHLORIDE LEVEL 105 MEQ/L (98-107); CHOLESTEROL LEVEL 148 MG/DL (<200); CHOLESTEROL RISK RATIO 4.933 (<5); CREATININE FOR GFR 0.79 MG/DL (0.70-1.30); GLOMERULAR FILTRATION RATE > 60.0 (>49); GLUCOSE, FASTING 193 MG/DL (70-100); HDL CHOLESTEROL 30 MG/DL (>40); LDL CHOLESTEROL 65 MG/DL (<100); NON-HDL-C 118 MG/DL; POTASSIUM SERUM 3.4 MEQ/L (3.5-5.1); SODIUM LEVEL 141 MEQ/L (136-145); TOTAL PROTEIN 7.2 GM/DL (6.4-8.2); TRIGLYCERIDES LEVEL 263 MG/DL (<150)
[2020-11-10 09:26] LABS: HEMOGLOBIN A1c 6.2 %
== END ==
LOC: M LAB 07:30
PROVIDERS: ATTEND Nurse Practitioner Adult Health
DX: E74.39 Other disorders of intestinal carbohydrate absorption (principal); E78.1 Pure hyperglyceridemia; I10 Essential (primary) hypertension

== ENCOUNTER → 2021-05-11 | Outpatient (CLI) | payer BC ==
[~2021-05-11] MED LIST changes: -BISO10TA4 PO; +BISO1TAB19 PO
[2021-05-11 14:06] LABS: ALBUMIN 4.3 GM/DL (3.2-5.2); ALT/SGPT 27 U/L (12-78); BILIRUBIN,TOTAL 0.5 MG/DL (0.2-1.0); BLOOD UREA NITROGEN 12 MG/DL (7-18); CALCIUM LEVEL 9.7 MG/DL (8.8-10.2); CARBON DIOXIDE LEVEL 27 MEQ/L (21-32); CHLORIDE LEVEL 103 MEQ/L (98-107); CREATININE FOR GFR 0.78 MG/DL (0.70-1.30); GLOMERULAR FILTRATION RATE > 60.0 (>49); GLUCOSE, FASTING 115 MG/DL (70-100); POTASSIUM SERUM 4.1 MEQ/L (3.5-5.1); SODIUM LEVEL 138 MEQ/L (136-145); TOTAL PROTEIN 7.6 GM/DL (6.4-8.2)
[2021-05-11 14:28] LABS: HEMOGLOBIN A1c 5.8 %
== END ==
LOC: M PLALAB 10:50
PROVIDERS: ATTEND Nurse Practitioner Adult Health
DX: I10 Essential (primary) hypertension (principal); E74.39 Other disorders of intestinal carbohydrate absorption

== ENCOUNTER 2021-06-14 09:16 | Inpatient (IN) | payer MEDICARE, BC ==
[2021-06-14] VITALS (31 sets, daily range): BP systolic 138–181; BP diastolic 64–130
[~2021-06-14] VITALS: Ht 170.2 cm; Wt 113.1 kg
[2021-06-14] MEDS ORDERED: ISOVUE-370 76% 100ML VIAL As Ordered ONE (09:58)
[2021-06-14 10:09] LABS: BASO % 0.4 % (0.0-1.0); EOS # 0.1 10^3/uL (0.0-0.5); EOS % 1.4 % (0.0-3.0); HEMATOCRIT 45.7 % (42.0-52.0); HEMOGLOBIN 15.9 g/dl (13.5-17.5); LYMPH # 1.4 10^3/uL (1.5-5.0); LYMPH % 17.2 % (24.0-44.0); MEAN CORPUSCULAR HEMOGLOBIN 29.9 pg (27.0-33.0); MEAN CORPUSCULAR HGB CONC 34.8 g/dl (32.0-36.5); MEAN CORPUSCULAR VOLUME 85.9 fl (80.0-96.0); MONO # 0.3 10^3/uL (0.0-0.8); MONO % 3.9 % (2.0-8.0); NEUTROPHILS # 6.2 10^3/uL (1.5-8.5); NEUTROPHILS % 76.9 % (36.0-66.0); PLATELET COUNT, AUTOMATED 198 10^3/uL (150-450); RED BLOOD COUNT 5.32 10^6/uL (4.30-6.10)
[2021-06-14 10:40] LABS: CK-MB VALUE MASS 2.6 NG/ML (<3.6); MB/CK RELATIVE INDEX 1.43 (< OR =4)
[2021-06-14 10:49] LABS: RSV AMPLIFICATION NEGATIVE (NEGATIVE)
[2021-06-14] MEDS ORDERED: hydrALAZINE 20MG/ML 1ML VIAL (J0360 PER 20MG) IV ONE (11:00)
[2021-06-14] MEDS ORDERED: NS 500 ML IV ONE (11:20)
[2021-06-14] MEDS ORDERED: hydrALAZINE 20MG/ML 1ML VIAL (J0360 PER 20MG) IV STA (12:05)
[2021-06-14] MEDS ORDERED: ONDANSETRON 4MG/2ML VIAL As Ordered ONE (12:10)
[2021-06-14] MEDS ORDERED: ONDANSETRON 4MG/2ML VIAL IV ONE (12:15)
[2021-06-14] MEDS ORDERED: PERCOCET 5MG/325MG TAB PO ONE (12:20)
[2021-06-14] MEDS ORDERED: niCARdipine IV 40 MG in IV 1 EA IV SCH (13:10)
[2021-06-14] MEDS ORDERED: NORV5TAB PO (13:36)
[2021-06-14] MEDS ORDERED: CARV12.5 PO (13:36)
[2021-06-14] MEDS ORDERED: EZET10TA21 PO (13:37)
[2021-06-14] MEDS ORDERED: PRAZ5CAP PO (13:37)
[2021-06-14] MEDS ORDERED: HOME MED LIST COMPLETE! XX SCH (13:40)
[2021-06-14] MEDS ORDERED: ACETAMINOPHEN TAB 650MG DOSE (2X325MG) PO PRN (14:30)
[2021-06-14] MEDS: niCARdipine IV 40 MG in IV 1 EA IV SCH ×2 (17:58→22:47)
[2021-06-14] MEDS: ONDANSETRON 4MG/2ML VIAL IV PRN (18:11)
[2021-06-14] MEDS: PERCOCET 5MG/325MG TAB PO PRN (20:34)
[2021-06-14] MEDS: CARVedilol 12.5 MG TAB PO SCH (20:36)
[2021-06-14] MEDS: ENOXAPARIN 40MG/0.4ML SYRINGE (J1650 PER 10MG) SC SCH (20:36)
[2021-06-14] MEDS ORDERED: PRAZOSIN 1 MG CAP PO SCH (21:00)
[2021-06-15] VITALS (50 sets, daily range): BP systolic 124–201; BP diastolic 56–101
[2021-06-15 03:59] LABS: HEMATOCRIT 41.8 % (42.0-52.0); HEMOGLOBIN 14.6 g/dl (13.5-17.5); MEAN CORPUSCULAR HEMOGLOBIN 29.9 pg (27.0-33.0); MEAN CORPUSCULAR HGB CONC 34.9 g/dl (32.0-36.5); MEAN CORPUSCULAR VOLUME 85.7 fl (80.0-96.0); PLATELET COUNT, AUTOMATED 191 10^3/uL (150-450); RED BLOOD COUNT 4.88 10^6/uL (4.30-6.10)
[2021-06-15 04:10] LABS: INR 1.07; PROTHROMBIN TIME 14.3 SECONDS (12.7-14.5)
[2021-06-15 04:30] LABS: BLOOD UREA NITROGEN 11 MG/DL (7-18); CALCIUM LEVEL 8.8 MG/DL (8.8-10.2); CARBON DIOXIDE LEVEL 28 MEQ/L (21-32); CHLORIDE LEVEL 106 MEQ/L (98-107); GLOMERULAR FILTRATION RATE > 60.0 (>49); GLUCOSE, FASTING 139 MG/DL (70-100); MAGNESIUM LEVEL 2.2 MG/DL (1.8-2.4); POTASSIUM SERUM 3.5 MEQ/L (3.5-5.1); SODIUM LEVEL 139 MEQ/L (136-145)
[2021-06-15] MEDS: niCARdipine IV 40 MG in IV 1 EA IV SCH ×3 (06:17→22:30)
[2021-06-15] MEDS: EZETIMIBE 10MG TABLET (ZETIA) PO SCH (08:08)
[2021-06-15] MEDS: CARVedilol 12.5 MG TAB PO SCH ×2 (08:08→20:04)
[2021-06-15] MEDS: ONDANSETRON 4MG/2ML VIAL IV PRN (08:30)
[2021-06-15] MEDS: ENOXAPARIN 40MG/0.4ML SYRINGE (J1650 PER 10MG) SC SCH (20:04)
[2021-06-15] MEDS: PERCOCET 5MG/325MG TAB PO PRN (20:06)
[2021-06-16] VITALS: BP 146/71
[2021-06-16] MEDS: PERCOCET 5MG/325MG TAB PO PRN ×2 (00:24→09:58)
[2021-06-16 01:00] VITALS: BP 160/88
[2021-06-16 04:00] VITALS: BP 156/80
[2021-06-16 06:09] LABS: HEMATOCRIT 42.5 % (42.0-52.0); HEMOGLOBIN 14.6 g/dl (13.5-17.5); MEAN CORPUSCULAR HGB CONC 34.4 g/dl (32.0-36.5); MEAN CORPUSCULAR VOLUME 87.3 fl (80.0-96.0); PLATELET COUNT, AUTOMATED 205 10^3/uL (150-450); RED BLOOD COUNT 4.87 10^6/uL (4.30-6.10); WHITE BLOOD COUNT 9.8 10^3/uL (4.0-10.0)
[2021-06-16 06:19] LABS: BLOOD UREA NITROGEN 14 MG/DL (7-18); CALCIUM LEVEL 9.1 MG/DL (8.8-10.2); CARBON DIOXIDE LEVEL 29 MEQ/L (21-32); CHLORIDE LEVEL 106 MEQ/L (98-107); CREATININE FOR GFR 0.85 MG/DL (0.70-1.30); GLOMERULAR FILTRATION RATE > 60.0 (>49); GLUCOSE, FASTING 108 MG/DL (70-100); MAGNESIUM LEVEL 2.1 MG/DL (1.8-2.4); POTASSIUM SERUM 3.9 MEQ/L (3.5-5.1); SODIUM LEVEL 141 MEQ/L (136-145)
[2021-06-16] MEDS ORDERED: LISI40TA4 PO (07:59)
[2021-06-16] MEDS ORDERED: PERCOCET PO (07:59)
[2021-06-16 08:00] VITALS: BP 184/96
[2021-06-16] MEDS ORDERED: MM S100C PO (08:01)
[2021-06-16 08:21] VITALS: BP 184/96
[2021-06-16] MEDS: CARVedilol 12.5 MG TAB PO SCH (08:21)
[2021-06-16] MEDS: EZETIMIBE 10MG TABLET (ZETIA) PO SCH (08:22)
[2021-06-16] MEDS ORDERED: MIRALAX *UNIT DOSE* 17GM PACKET PO SCH (09:00)
[2021-06-16] MEDS ORDERED: lisinopriL 40MG TAB PO SCH (09:00)
[2021-06-16 09:49] VITALS: BP 166/84
== END 2021-06-16 10:40 | disposition home or self-care (01) | DRG 305 ==
LOC: M ED 09:16 → M ED INP 14:27 → ENRESERV 14:49 → M ICU 16:58 → M PCU 06-16 00:45
PROVIDERS: ADMIT Family Medicine; ATTEND Family Medicine
DX: I16.1 Hypertensive emergency (principal); I10 Essential (primary) hypertension; M54.9 Dorsalgia, unspecified; R42 Dizziness and giddiness; Z79.899 Other long term (current) drug therapy; Z91.013 Allergy to seafood; Z88.5 Allergy status to narcotic agent; Z91.030 Bee allergy status; Z98.41 Cataract extraction status, right eye; F41.9 Anxiety disorder, unspecified; F32.A Depression, unspecified

== ENCOUNTER → 2021-09-21 | Outpatient (CLI) | payer BC ==
[~2021-09-21] MED LIST changes: +CARV12.5 PO; +EZET10TA21 PO; +LISI40TA4 PO; +MM S100C PO; +NORV5TAB PO; +PERCOCET PO; +PRAZ5CAP PO
[2021-09-22 19:07] LABS: IgG P18 AB Absent (.); IgG P23 AB Absent (.); IgG P28 AB Absent (.); IgG P30 AB Absent (.); IgG P39 AB Absent (.); IgG P41 AB Absent (.); IgG P45 AB Absent (.); IgG P66 AB Absent (.); IgG P93 AB Absent (.); IgM P23 AB Absent (.); IgM P39 AB Absent (.); IgM P41 AB Absent (.); LYME IgG WB INTERPRETATION Negative (.); LYME IgM WB INTERPRETATION Negative (.)
== END ==
LOC: M PLALAB 10:35
PROVIDERS: ATTEND Nurse Practitioner Adult Health
DX: S30.861A Insect bite (nonvenomous) of abdominal wall, initial encounter (principal); W57.XXXA Bitten or stung by nonvenomous insect and other nonvenomous arthropods, initial encounter; Y92.9 Unspecified place or not applicable; Y93.9 Activity, unspecified; Y99.9 Unspecified external cause status

== ENCOUNTER → 2022-05-17 | Outpatient (REF) | payer BC | LOC: M SFHCPLAZ 16:54 | PROVIDERS: ATTEND Nurse Practitioner Adult Health | DX: E74.39 Other disorders of intestinal carbohydrate absorption (principal); E78.1 Pure hyperglyceridemia; I10 Essential (primary) hypertension; Z12.5 Encounter for screening for malignant neoplasm of prostate; Z53.9 Procedure and treatment not carried out, unspecified reason ==

== ENCOUNTER → 2022-05-18 | Outpatient (CLI) | payer MEDICARE, BC ==
[2022-05-18 17:32] LABS: HEMOGLOBIN A1c 6.5 % (4.0-6.0)
[2022-05-18 17:39] LABS: ALBUMIN 4.3 G/DL (3.2-5.2); ALKALINE PHOSPHATASE 77 U/L (46-116); ALT/SGPT 31 U/L (7.0-40); AST/SGOT 31 U/L (<34); BILIRUBIN,TOTAL 0.6 MG/DL (0.3-1.2); BLOOD UREA NITROGEN 11 MG/DL (9-23); CALCIUM LEVEL 9.8 MG/DL (8.3-10.6); CARBON DIOXIDE LEVEL 32 MMOL/L (20-31); CHLORIDE LEVEL 99 MMOL/L (98-107); CHOLESTEROL LEVEL 200 MG/DL (<200); CHOLESTEROL RISK RATIO 5.37 (<5); CREATININE FOR GFR 0.75 MG/DL (0.70-1.30); GLOMERULAR FILTRATION RATE > 60.0 (>49); GLUCOSE, FASTING 108 MG/DL (74-106); HDL CHOLESTEROL 37.2 MG/DL (>40); NON-HDL-C 163 MG/DL; POTASSIUM SERUM 4.3 MMOL/L (3.5-5.1); SODIUM LEVEL 137 MMOL/L (136-145); TOTAL PROTEIN 7.4 G/DL (5.7-8.2); TRIGLYCERIDES LEVEL 699 MG/DL (<150)
== END ==
LOC: M PLALAB 13:42
PROVIDERS: ATTEND Nurse Practitioner Adult Health
DX: E74.39 Other disorders of intestinal carbohydrate absorption (principal); I10 Essential (primary) hypertension; E78.1 Pure hyperglyceridemia; Z12.5 Encounter for screening for malignant neoplasm of prostate
CPT/HCPCS: 36415; 80053; 80061; 83036; G0103

== ENCOUNTER → 2022-08-14 | Outpatient (CLI) | payer BC, MEDICARE ==
[2022-08-14 14:25] LABS: CHOLESTEROL RISK RATIO 4.43 (<5); HDL CHOLESTEROL 31.8 MG/DL (>40); LDL CHOLESTEROL 37.6 MG/DL (<100); NON-HDL-C 109.2 MG/DL
[2022-08-14 14:42] LABS: HEMOGLOBIN A1c 6.6 % (4.0-6.0)
== END ==
LOC: M PLALAB 10:04
PROVIDERS: ATTEND Nurse Practitioner Adult Health
DX: E74.39 Other disorders of intestinal carbohydrate absorption (principal)

== ENCOUNTER → 2023-03-07 | Outpatient (CLI) | payer MEDICARE, BC ==
[~2023-03-07] MED LIST changes: +MECL-209 PO; -MECL1TAB31 PO
[2023-03-07 14:10] LABS: HEMATOCRIT 45.8 % (42.0-52.0); HEMOGLOBIN 15.8 g/dl (13.5-17.5); MEAN CORPUSCULAR HEMOGLOBIN 30.5 pg (27.0-33.0); MEAN CORPUSCULAR HGB CONC 34.5 g/dl (32.0-36.5); MEAN CORPUSCULAR VOLUME 88.4 fl (80.0-96.0); PLATELET COUNT, AUTOMATED 190 10^3/uL (150-450); RED BLOOD COUNT 5.18 10^6/uL (4.30-6.10); WHITE BLOOD COUNT 6.5 10^3/uL (4.0-10.0)
[2023-03-07 14:17] LABS: ALBUMIN 4.3 G/DL (3.2-5.2); ALKALINE PHOSPHATASE 69 U/L (46-116); ALT/SGPT 26 U/L (7.0-40); AST/SGOT 20 U/L (<34); BILIRUBIN,TOTAL 0.8 MG/DL (0.3-1.2); BLOOD UREA NITROGEN 9 MG/DL (9-23); CALCIUM LEVEL 9.4 MG/DL (8.3-10.6); CARBON DIOXIDE LEVEL 30 MMOL/L (20-31); CHLORIDE LEVEL 101 MMOL/L (98-107); CHOLESTEROL LEVEL 191 MG/DL (<200); CHOLESTEROL RISK RATIO 4.83 (<5); CREATININE FOR GFR 0.65 MG/DL (0.70-1.30); FERRITIN 137.4 NG/ML (10.5-307.3); GLOMERULAR FILTRATION RATE > 60.0 (>49); GLUCOSE, FASTING 145 MG/DL (74-106); HDL CHOLESTEROL 39.5 MG/DL (>40); LDL CHOLESTEROL 86.3 MG/DL (<100); NON-HDL-C 151.5 MG/DL; POTASSIUM SERUM 4.1 MMOL/L (3.5-5.1); PSA SCREENING 4.91 NG/ML (< 4.00); SODIUM LEVEL 138 MMOL/L (136-145); TOTAL PROTEIN 7.3 G/DL (5.7-8.2); TRIGLYCERIDES LEVEL 326 MG/DL (<150)
[2023-03-07 14:24] LABS: HEMOGLOBIN A1c 6.2 % (4.0-6.0)
== END ==
LOC: M PLALAB 09:05
PROVIDERS: ATTEND Nurse Practitioner Adult Health
DX: E78.1 Pure hyperglyceridemia (principal); Z12.5 Encounter for screening for malignant neoplasm of prostate; E74.39 Other disorders of intestinal carbohydrate absorption; I10 Essential (primary) hypertension; F32.9 Major depressive disorder, single episode, unspecified; R45.86 Emotional lability; M96.1 Postlaminectomy syndrome, not elsewhere classified; F51.04 Psychophysiologic insomnia; E66.01 Morbid (severe) obesity due to excess calories; Z68.41 Body mass index [BMI] 40.0-44.9, adult; Z79.899 Other long term (current) drug therapy; Z86.39 Personal history of other endocrine, nutritional and metabolic disease
CPT/HCPCS: 36415; 80053; 80061; 82728; 83036; 85027; G0103

== ENCOUNTER → 2023-10-02 | Outpatient (CLI) | payer MEDICARE, BC ==
[~2023-10-02] MED LIST changes: +ONDA-282 PO; -ONDA4TAB6 PO
[2023-10-02 08:47] LABS: HEMATOCRIT 44.2 % (42.0-52.0); HEMOGLOBIN 15.5 g/dl (13.5-17.5); MEAN CORPUSCULAR HEMOGLOBIN 30.6 pg (27.0-33.0); MEAN CORPUSCULAR HGB CONC 35.1 g/dl (32.0-36.5); MEAN CORPUSCULAR VOLUME 87.4 fl (80.0-96.0); PLATELET COUNT, AUTOMATED 209 10^3/uL (150-450); RED BLOOD COUNT 5.06 10^6/uL (4.30-6.10); WHITE BLOOD COUNT 8.1 10^3/uL (4.0-10.0)
[2023-10-02 09:02] LABS: HEMOGLOBIN A1c 6.2 % (4.0-6.0)
[2023-10-02 09:14] LABS: ALBUMIN 4.6 G/DL (3.2-5.2); ALKALINE PHOSPHATASE 78 U/L (46-116); ALT/SGPT 38 U/L (7.0-40); AST/SGOT 22 U/L (<34); BILIRUBIN,TOTAL 1.2 MG/DL (0.3-1.2); BLOOD UREA NITROGEN 10 MG/DL (9-23); CALCIUM LEVEL 9.6 MG/DL (8.3-10.6); CARBON DIOXIDE LEVEL 31 MMOL/L (20-31); CHLORIDE LEVEL 101 MMOL/L (98-107); CHOLESTEROL LEVEL 189 MG/DL (<200); CREATININE FOR GFR 0.68 MG/DL (0.70-1.30); GLOMERULAR FILTRATION RATE > 60.0 (>49); GLUCOSE, FASTING 154 MG/DL (74-106); HDL CHOLESTEROL 39.3 MG/DL (>40); IRON (FE) 168 UG/DL (65-175); LDL CHOLESTEROL 100.7 MG/DL (<100); NON-HDL-C 149.7 MG/DL; PERCENT SATURATION 46.8 % (19.7-50.0); SODIUM LEVEL 137 MMOL/L (136-145); TOTAL IRON BINDING CAPACITY 359 UG/DL (250-425); TOTAL PROTEIN 7.5 G/DL (5.7-8.2); TRIGLYCERIDES LEVEL 245 MG/DL (<150)
[2023-10-02 09:17] LABS: FERRITIN 171.9 NG/ML (10.5-307.3)
== END ==
LOC: M LAB 07:17
PROVIDERS: ATTEND Nurse Practitioner Adult Health
DX: Z00.00 Encounter for general adult medical examination without abnormal findings (principal); E78.1 Pure hyperglyceridemia; E74.39 Other disorders of intestinal carbohydrate absorption; R97.20 Elevated prostate specific antigen [PSA]; Z79.899 Other long term (current) drug therapy

== ENCOUNTER → 2023-10-02 | Outpatient (CLI) | payer MEDICARE, BC ==
[2023-10-04 14:25] LABS: PSA FREE 0.9 ng/mL; PSA TOTAL 7.6 ng/mL (< OR = 4.0)
== END ==
LOC: M LAB 07:20
PROVIDERS: ATTEND Urology
DX: R97.20 Elevated prostate specific antigen [PSA] (principal)

== ENCOUNTER 2023-10-15 12:24 | Emergency (ER) | payer MEDICARE, BC ==
[~2023-10-15] VITALS: Ht 170.2 cm; Wt 107.4 kg
[2023-10-15 14:08] LABS: BASO % 0.2 % (0.0-1.0); EOS % 0.3 % (0.0-3.0); HEMATOCRIT 44.9 % (42.0-52.0); HEMOGLOBIN 16.1 g/dl (13.5-17.5); LYMPH # 2.7 10^3/uL (1.5-5.0); LYMPH % 25.3 % (24.0-44.0); MEAN CORPUSCULAR HEMOGLOBIN 30.9 pg (27.0-33.0); MEAN CORPUSCULAR HGB CONC 35.9 g/dl (32.0-36.5); MEAN CORPUSCULAR VOLUME 86.2 fl (80.0-96.0); MONO # 0.6 10^3/uL (0.0-0.8); MONO % 5.9 % (2.0-8.0); NEUTROPHILS # 7.3 10^3/uL (1.5-8.5); NEUTROPHILS % 67.7 % (36.0-66.0); PLATELET COUNT, AUTOMATED 281 10^3/uL (150-450); RED BLOOD COUNT 5.21 10^6/uL (4.30-6.10); WHITE BLOOD COUNT 10.8 10^3/uL (4.0-10.0)
[2023-10-15 14:34] LABS: CK-MB VALUE MASS 2.4 NG/ML (<3.6)
[2023-10-15 14:36] LABS: BLOOD UREA NITROGEN 9 MG/DL (9-23); CALCIUM LEVEL 10.2 MG/DL (8.3-10.6); CARBON DIOXIDE LEVEL 28 MMOL/L (20-31); CHLORIDE LEVEL 102 MMOL/L (98-107); CPK CREATINE PHOSPHOKINASE 146 U/L (46-171); GLOMERULAR FILTRATION RATE > 60.0 (>49); GLUCOSE, FASTING 121 MG/DL (74-106); MB/CK RELATIVE INDEX 1.64 (< OR =4); POTASSIUM SERUM 3.6 MMOL/L (3.5-5.1); SODIUM LEVEL 140 MMOL/L (136-145)
[2023-10-15] MEDS: LORazepam 2 MG/ML 1ML VIAL IV STA (14:44)
[2023-10-15 15:06] LABS: ETHYL ALCOHOL (ETHANOL) < 0.003 % (0.000-0.010)
[2023-10-15 15:08] LABS: SALICYLATE LEVEL < 3.0 MG/DL (<30)
[2023-10-15 16:39] LABS: AMPHETAMINES LEVEL URINE NEGATIVE (NEGATIVE); BARBITURATES URINE NEGATIVE (NEGATIVE)
[2023-10-15 16:40] LABS: BENZODIAZEPINES URINE NEGATIVE (NEGATIVE); COCAINE METABOLITE URINE NEGATIVE (NEGATIVE); METHADONE URINE NEGATIVE (NEGATIVE); OPIATES URINE NEGATIVE (NEGATIVE); PHENCYCLIDINE URINE NEGATIVE (NEGATIVE)
[2023-10-15 16:45] LABS: CANNABINOIDS URINE POSITIVE (NEGATIVE)
[2023-10-15 17:23] VITALS: BP 158/67; TEMP 98.9; O2SAT 96
== END 2023-10-15 17:25 | disposition home or self-care (01) ==
LOC: M ED 12:24
DX: F41.0 Panic disorder [episodic paroxysmal anxiety] (principal); I10 Essential (primary) hypertension; R51.9 Headache, unspecified; M54.50 Low back pain, unspecified; F43.10 Post-traumatic stress disorder, unspecified; Z79.811 Long term (current) use of aromatase inhibitors; Z79.1 Long term (current) use of non-steroidal anti-inflammatories (NSAID); Z79.899 Other long term (current) drug therapy; Z91.013 Allergy to seafood; Z91.030 Bee allergy status; Z88.5 Allergy status to narcotic agent
CPT/HCPCS: 36415; 70450; 80048; 80143; 80307; 82077; 82550; 82553; 84484; 85025; 93005; 96374; 99284; J2060

== ENCOUNTER → 2023-10-29 | Outpatient (REF) | payer MEDICARE, BC | LOC: M SMT PRO 12:26 | PROVIDERS: ATTEND Urology | DX: C61 Malignant neoplasm of prostate (principal); R97.20 Elevated prostate specific antigen [PSA] ==

== ENCOUNTER → 2024-02-25 | Outpatient (CLI) | payer MEDICARE, BC | LOC: M LAB 07:30 | PROVIDERS: ATTEND Urology | DX: C61 Malignant neoplasm of prostate (principal) ==

== ENCOUNTER → 2024-04-16 | Outpatient (CLI) | payer MEDICARE, BC ==
[2024-04-16 13:37] LABS: HEMATOCRIT 44.1 % (42.0-52.0); HEMOGLOBIN 15.1 g/dl (13.5-17.5); MEAN CORPUSCULAR HEMOGLOBIN 29.5 pg (27.0-33.0); MEAN CORPUSCULAR HGB CONC 34.2 g/dl (32.0-36.5); MEAN CORPUSCULAR VOLUME 86.3 fl (80.0-96.0); PLATELET COUNT, AUTOMATED 211 10^3/uL (150-450); RED BLOOD COUNT 5.11 10^6/uL (4.30-6.10); WHITE BLOOD COUNT 6.8 10^3/uL (4.0-10.0)
[2024-04-16 13:47] LABS: HEMOGLOBIN A1c 6.5 % (4.0-6.0)
[2024-04-16 14:13] LABS: ALBUMIN 4.3 G/DL (3.2-5.2); ALKALINE PHOSPHATASE 69 U/L (40-129); ALT/SGPT 26 U/L (7.0-40); AST/SGOT 19 U/L (<34); BILIRUBIN,TOTAL 0.7 MG/DL (0.3-1.2); BLOOD UREA NITROGEN 10 MG/DL (9-23); CALCIUM LEVEL 9.2 MG/DL (8.3-10.6); CARBON DIOXIDE LEVEL 30 MMOL/L (20-31); CHLORIDE LEVEL 102 MMOL/L (98-107); CHOLESTEROL LEVEL 171 MG/DL (<200); CREATININE FOR GFR 0.67 MG/DL (0.70-1.30); GLOMERULAR FILTRATION RATE > 60.0 (>49); GLUCOSE, FASTING 153 MG/DL (74-106); HDL CHOLESTEROL 37.1 MG/DL (>40); LDL CHOLESTEROL 76.3 MG/DL (<100); NON-HDL-C 133.9 MG/DL; POTASSIUM SERUM 4.3 MMOL/L (3.5-5.1); SODIUM LEVEL 141 MMOL/L (136-145); TOTAL PROTEIN 7.2 G/DL (5.7-8.2); TRIGLYCERIDES LEVEL 288 MG/DL (<150)
== END ==
LOC: M PLALAB 09:52
PROVIDERS: ATTEND Nurse Practitioner Adult Health
DX: E74.39 Other disorders of intestinal carbohydrate absorption (principal); E78.1 Pure hyperglyceridemia; I10 Essential (primary) hypertension; Z79.899 Other long term (current) drug therapy

== ENCOUNTER → 2024-05-20 | Outpatient (CLI) | payer MEDICARE, BC | LOC: M PLALAB 08:01 | PROVIDERS: ATTEND Urology | DX: C61 Malignant neoplasm of prostate (principal) ==

== ENCOUNTER → 2024-08-12 | Outpatient (CLI) | payer MEDICARE, BC ==
[2024-08-12 14:34] LABS: CREATININE FOR GFR 0.62 MG/DL (0.70-1.30); GLOMERULAR FILTRATION RATE > 90.0 (>49)
== END ==
LOC: M PLALAB 10:13
PROVIDERS: ATTEND Nurse Practitioner Adult Health
DX: Z01.812 Encounter for preprocedural laboratory examination (principal); I10 Essential (primary) hypertension; M54.50 Low back pain, unspecified

== ENCOUNTER → 2024-10-27 | Outpatient (CLI) | payer MEDICARE, BC ==
[~2024-10-27] MED LIST changes: +LISI40TA10 PO; -LISI40TA4 PO
[2024-10-27 14:08] LABS: PLATELET COUNT, AUTOMATED 202 10^3/uL (150-450)
[2024-10-27 14:35] LABS: ALT/SGPT 28 U/L (7.0-40); AST/SGOT 27 U/L (<34); CALCIUM LEVEL 8.9 MG/DL (8.3-10.6); CARBON DIOXIDE LEVEL 30 MMOL/L (20-31); CHLORIDE LEVEL 96 MMOL/L (98-107); CHOLESTEROL LEVEL 144 MG/DL (<200); CHOLESTEROL RISK RATIO 4.51 (<5); CREATININE FOR GFR 0.69 MG/DL (0.70-1.30); GLOMERULAR FILTRATION RATE > 90.0 (>49); LDL CHOLESTEROL 36.1 MG/DL (<100); NON-HDL-C 112.1 MG/DL; POTASSIUM SERUM 4.5 MMOL/L (3.5-5.1); SODIUM LEVEL 138 MMOL/L (136-145); TRIGLYCERIDES LEVEL 380 MG/DL (<150)
[2024-10-27 14:44] LABS: ESTIMATED AVERAGE GLUCOSE 166.0 MG/DL (60-110)
== END ==
LOC: M PLALAB 09:34
PROVIDERS: ATTEND Nurse Practitioner Adult Health
DX: I10 Essential (primary) hypertension (principal); E78.1 Pure hyperglyceridemia; E74.39 Other disorders of intestinal carbohydrate absorption; Z79.899 Other long term (current) drug therapy

== ENCOUNTER → 2024-12-02 | Outpatient (CLI) | payer MEDICARE, BC | LOC: M PLALAB 10:30 | PROVIDERS: ATTEND Urology | DX: C61 Malignant neoplasm of prostate (principal) ==

== ENCOUNTER → 2025-01-05 | Outpatient (CLI) | payer MEDICARE, BC ==
[~2025-01-05] MED LIST changes: -DIPH50CA PO; +DIPH50CA31 PO; -EZET10TA21 PO; +EZET10TA57 PO; +PROHANCE 279.3MG/ML 15ML VIAL ONE; +PROHANCE 279.3MG/ML 5ML VIAL ONE
== END ==
LOC: M PLAIMG 11:12
PROVIDERS: ATTEND Urology
DX: C61 Malignant neoplasm of prostate (principal)
CPT/HCPCS: 72197; A9576

== ENCOUNTER → 2025-01-26 | Outpatient (REF) | payer MEDICARE, BC ==
[~2025-01-26] MED LIST changes: -PROHANCE 279.3MG/ML 15ML VIAL ONE; -PROHANCE 279.3MG/ML 5ML VIAL ONE
== END ==
LOC: M SMT 13:18
PROVIDERS: ATTEND Urology
DX: C61 Malignant neoplasm of prostate (principal)

== ENCOUNTER → 2025-02-23 | Outpatient (CLI) | payer MEDICARE, BC ==
[2025-02-23 10:24] LABS: PLATELET COUNT, AUTOMATED 206 10^3/uL (150-450)
[2025-02-23 10:29] LABS: CALCIUM LEVEL 9.2 MG/DL (8.3-10.6); CARBON DIOXIDE LEVEL 29 MMOL/L (20-31); CHLORIDE LEVEL 101 MMOL/L (98-107); CREATININE FOR GFR 0.68 MG/DL (0.70-1.30); GLOMERULAR FILTRATION RATE > 90.0 (>49); POTASSIUM SERUM 4.1 MMOL/L (3.5-5.1); SODIUM LEVEL 140 MMOL/L (136-145)
[2025-02-23 11:09] LABS: INR 0.94
== END ==
LOC: M PLALAB 08:25
PROVIDERS: ATTEND Urology
DX: Z01.818 Encounter for other preprocedural examination (principal); C61 Malignant neoplasm of prostate; N39.0 Urinary tract infection, site not specified

== ENCOUNTER 2025-03-18 06:05 | Day surgery (SDC) | payer MEDICARE, BC ==
[2025-03-18] VITALS (8 sets, daily range): BP systolic 127–172; BP diastolic 65–94; TEMP 97.9–99.6; O2SAT 91–95
[~2025-03-18] VITALS: Ht 172.7 cm; Wt 114.9 kg
[~2025-03-18 06:05] MED LIST changes: +ACET-907 PO; +BUSP5TA PO; +CITA20TA6 PO; +EPIN0.3I11 IM; +HYDR-3363 PO; +JANU100T PO; +LOSA100T46 PO; +TRAZ1TAB11 PO
[2025-03-18] MEDS: LR 1,000 ML IV SCH (07:02)
[2025-03-18] MEDS ORDERED: HYDROmorphone HCL 2 MG/ML 1 ML VIAL As Ordered ONE (07:16)
[2025-03-18] MEDS ORDERED: MIDAZOLAM INJ 2 MG/2 ML VIAL As Ordered ONE (07:16)
[2025-03-18] MEDS ORDERED: dexAMETHasone 4 MG/ML 1 ML VIAL As Ordered ONE (07:17)
[2025-03-18] MEDS ORDERED: SUGAMMADEX SODIUM 500 MG/5 ML VIAL As Ordered ONE (07:17)
[2025-03-18] MEDS ORDERED: LIDOCAINE 2% 100 MG/5 ML SDV (FOR ANES.) As Ordered ONE (07:17)
[2025-03-18] MEDS ORDERED: KETOROLAC 30 MG/ML 1 ML VIAL As Ordered ONE (07:17)
[2025-03-18] MEDS ORDERED: ROCURONIUM BROMIDE 50MG/5ML VIAL As Ordered ONE (07:17)
[2025-03-18] MEDS ORDERED: ONDANSETRON 4MG/2ML VIAL As Ordered ONE (07:17)
[2025-03-18] MEDS ORDERED: dexmedeTOMIDine (4 MCG/ML) 200 MCG/50 ML BTL As Ordered ONE (07:23)
[2025-03-18] MEDS ORDERED: DEXTROSE 50% 50 ML SYRINGE IV PRN (07:25)
[2025-03-18] MEDS ORDERED: GLUCAGON INJ 1 MG VIAL SC PRN (07:25)
[2025-03-18] MEDS ORDERED: GLUCOSE 4 GM CHEW PO PRN (07:25)
[2025-03-18] MEDS ORDERED: ONDANSETRON 4MG/2ML VIAL IV PRN ×2 (07:25→12:45)
[2025-03-18] MEDS ORDERED: ACETAMINOPHEN 325 MG TAB PO PRN (07:25)
[2025-03-18] MEDS: INSULIN LISPRO (NovoLOG) PER UNIT SC SCH ×2 (07:30→20:56)
[2025-03-18] MEDS: ceFAZolin SOD 3 GM in DEXTROSE 5% (D5W) MINI-BAG PLU 1... IV ONE (07:30)
[2025-03-18] MEDS ORDERED: ACETAMINOPHEN 1000MG/100ML IV BAG As Ordered ONE (07:48)
[2025-03-18] MEDS: HEPARIN SOD 5000 UNITS/ML 1 ML VIAL/SYRINGE SQ ONE (07:50)
[2025-03-18] MEDS ORDERED: PHENYLephrine 500MCG 5ML (100MCG/ML) SYRINGE As Ordered ONE (08:13)
[2025-03-18] MEDS ORDERED: PHENYLEPHRINE 10MG/ML 1ML VIAL As Ordered ONE (08:16)
[2025-03-18] MEDS ORDERED: hydrALAZINE 20 MG/ML 1 ML VIAL As Ordered ONE (08:47)
[2025-03-18] MEDS: DOCUSATE SODIUM 100 MG CAPSULE PO SCH (09:00)
[2025-03-18] MEDS: LIDOCAINE 1% SDV 30 ML VIAL As Ordered ONE (12:42)
[2025-03-18 13:32] LABS: PLATELET COUNT, AUTOMATED 196 10^3/uL (150-450)
[2025-03-18] MEDS: LABETALOL 100 MG/20 ML VIAL IV PRN (13:35)
[2025-03-18] MEDS ORDERED: LABETALOL 100 MG/20 ML VIAL As Ordered ONE (13:48)
[2025-03-18 13:53] LABS: CALCIUM LEVEL 8.3 MG/DL (8.3-10.6); CARBON DIOXIDE LEVEL 29 MMOL/L (20-31); CHLORIDE LEVEL 100 MMOL/L (98-107); CREATININE FOR GFR 0.75 MG/DL (0.70-1.30); GLOMERULAR FILTRATION RATE > 90.0 (>49); POTASSIUM SERUM 4.4 MMOL/L (3.5-5.1); SODIUM LEVEL 138 MMOL/L (136-145)
[2025-03-18] MEDS: PERCOCET 5MG/325MG TAB PO PRN (14:45)
[2025-03-18] MEDS ORDERED: ALBUTEROL 6.7 GM INHALER **FOR ANES. CART/OMNICELL ONLY As Ordered ONE (14:51)
[2025-03-18] MEDS: NS (Normal Saline) 0.9% 1,000 ML IV SCH (15:04)
[2025-03-18] MEDS: ceFAZolin SOD 1 GM in DEXTROSE 5% (D5W) ADV/MINI-BAG 50 ML IV SCH (16:23)
[2025-03-18] MEDS ORDERED: HOME MED LIST COMPLETE! XX SCH (18:05)
[2025-03-18] MEDS: HEPARIN SOD 5000 UNITS/ML 1 ML VIAL/SYRINGE SC SCH (21:14)
[2025-03-18] MEDS: busPIRone 5 MG TAB PO SCH (21:15)
[2025-03-18] MEDS: traZODone 50 MG TAB PO SCH (21:15)
[2025-03-19] MEDS: PERCOCET 5MG/325MG TAB PO PRN (03:03)
[2025-03-19 03:59] VITALS: BP 147/77; TEMP 98.7; O2SAT 94
[2025-03-19 06:49] LABS: CALCIUM LEVEL 8.2 MG/DL (8.3-10.6); CARBON DIOXIDE LEVEL 29 MMOL/L (20-31); CHLORIDE LEVEL 99 MMOL/L (98-107); CREATININE FOR GFR 0.70 MG/DL (0.70-1.30); GLOMERULAR FILTRATION RATE > 90.0 (>49); PLATELET COUNT, AUTOMATED 172 10^3/uL (150-450); POTASSIUM SERUM 3.6 MMOL/L (3.5-5.1); SODIUM LEVEL 138 MMOL/L (136-145)
[2025-03-19] MEDS ORDERED: BACT800T5 PO (07:43)
[2025-03-19] MEDS ORDERED: PERCOCET PO (07:43)
[2025-03-19] MEDS ORDERED: COLA100C5 PO (07:43)
[2025-03-19 08:00] VITALS: BP 184/97; TEMP 98.7; O2SAT 96
[2025-03-19 08:28] VITALS: BP 184/97
[2025-03-19] MEDS: amLODIPine 10 MG TAB PO SCH (08:28)
[2025-03-19] MEDS: LOSARTAN 50 MG TABLET PO SCH (08:30)
[2025-03-19 08:31] VITALS: O2SAT 96
[2025-03-19 09:57] VITALS: BP 164/78
== END 2025-03-19 12:25 | disposition home or self-care (01) ==
LOC: M SDC 06:05 → UNDOADMOB 06:06 → M MS5PR 06:06 → UNDODISOB 03-19 12:25 → M SDC 03-19 12:25 → M MS5PR 03-19 12:25
PROVIDERS: ATTEND Urology
DX: C61 Malignant neoplasm of prostate (principal); I10 Essential (primary) hypertension; E78.5 Hyperlipidemia, unspecified; E11.9 Type 2 diabetes mellitus without complications; F41.9 Anxiety disorder, unspecified; F32.A Depression, unspecified; G47.33 Obstructive sleep apnea (adult) (pediatric); Z86.73 Personal history of transient ischemic attack (TIA), and cerebral infarction without residual deficits; Z79.899 Other long term (current) drug therapy; Z88.5 Allergy status to narcotic agent; Z88.8 Allergy status to other drugs, medicaments and biological substances; Z91.030 Bee allergy status; Z91.013 Allergy to seafood
CPT/HCPCS: 36415; 38571; 55866; 80048; 85027; 86850; 86900; 86901; 88305; 88309; 96361; 96365; 96366; 96372; J0131; J0360; J0665; J0688; J0690; J1100; J1171; J1815; J1885; J1920; J2250; J2371; J2405; J2765; J3010; S2900